=== PATIENT | female | born 1990 | race Caucasian/White ===

== ENCOUNTER 2017-01-23 16:43 | Emergency (ER) | payer MEDICAID ==
[2017-01-23] MEDS ORDERED: Acetaminophen/HYDROcodone 325-5 MG Tab PO ONE (16:52)
[2017-01-23 17:07] VITALS: BP 122/85
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
== END 2017-01-23 17:32 | disposition home or self-care (01) ==
LOC: FB.ED 16:43
DX: S60.221A Contusion of right hand, initial encounter (principal); F17.210 Nicotine dependence, cigarettes, uncomplicated; Y93.83 Activity, rough housing and horseplay
CPT/HCPCS: 73090-RT; 73130-RT; 99283

== ENCOUNTER 2017-04-22 19:03 | Emergency (ER) | payer MEDICAID ==
[2017-04-22] MEDS ORDERED: Acetaminophen/Codeine 300-30 MG Tab PO ONE (19:42)
[2017-04-22 19:56] VITALS: BP 116/61
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
== END 2017-04-22 19:45 | disposition home or self-care (01) ==
LOC: FB.ED 19:03
DX: T21.12XA Burn of first degree of abdominal wall, initial encounter (principal); T31.0 Burns involving less than 10% of body surface; X12.XXXA Contact with other hot fluids, initial encounter
CPT/HCPCS: 99283; A9270